=== PATIENT | male | born 1955 | race Caucasian/White ===

== ENCOUNTER 2017-01-18 13:23 | Inpatient (IN) | payer OTHER ==
[~2017-01-18] VITALS: Ht 188 cm; Wt 95.0 kg
[~2017-01-18 13:23] MED LIST: AUG875; HYDR-1666
[2017-01-18 14:51] VITALS: Ht 188 cm; Wt 95.0 kg
[2017-01-18 15:27] VITALS: BP 150/85; PULSE 64; RESP 18
[2017-01-18 16:30] LABS: BASOPHIL # 0.1 10^3/ul (0.0-0.1); BASOPHILS % 0.5 % (0.0-2.0); EOSINOPHILS # 0.1 10^3/ul (0.0-0.5); EOSINOPHILS % 0.4 % (0.0-7.0); HEMATOCRIT 44.3 % (42.0-52.0); HEMOGLOBIN 14.7 g/dl (14.0-18.0); LYMPHOCYTES # 2.6 10^3/ul (0.8-2.9); LYMPHOCYTES % 20.1 % (15.0-51.0); MEAN CORPUSCULAR HEMOGLOBIN 31.1 pg (29.0-33.0); MEAN CORPUSCULAR HGB CONC 33.2 g/dl (32.0-37.0); MEAN CORPUSCULAR VOLUME 93.7 fl (82.0-101.0); MEAN PLATELET VOLUME 10.4 fl (7.4-10.4); MONOCYTE # 1.1 10^3/ul (0.3-0.9); MONOCYTES % 8.6 % (0.0-11.0); NEUTROPHIL # 9.2 10^3/ul (1.6-7.5); PLATELET COUNT 194 10^3/UL (140-415); RED BLOOD COUNT 4.73 10^6/ul (4.70-6.10); WHITE BLOOD COUNT 13.1 10^3/ul (4.8-10.8)
[2017-01-18] MEDS: HYDROmorphONE 0.5 MG/0.5 ML SYG IV PRN ×2 (16:43→20:55)
[2017-01-18 16:51] LABS: ALBUMIN 3.9 g/dl (3.3-4.9); ALBUMIN/GLOBULIN RATIO 1.11; BILIRUBIN,INDIRECT 1.8 mg/dl (0-1.1); BILIRUBIN,TOTAL 1.8 mg/dl (0.2-1.3); CALCIUM 9.2 mg/dl (8.4-10.2); CREATININE 1.03 mg/dl (0.61-1.24); POTASSIUM 4.1 mmol/L (3.5-5.1); TOTAL PROTEIN 7.4 g/dl (6.1-8.1)
[2017-01-18] MEDS ORDERED: LISI10TA2 PO (17:37)
[2017-01-18] MEDS ORDERED: METO-448 PO (17:38)
[2017-01-18] MEDS ORDERED: ATOR40TA68 PO (17:39)
[2017-01-18] MEDS ORDERED: ASPI81TA3 PO (17:40)
--- NOTE | 2017-01-18 17:55 | HP ---
Date/Time of Note Date/Time of Note DATE: 01/18/17 TIME: 17:43 Assessment/Plan VTE Prophylaxis VTE Prophylaxis Intervention: LMWH Lines/Catheters IV Catheter Type (from [facility]): Saline Lock Urinary Cath still in place: No Assessment/Plan Chief Complaint/Hosp Course 61 yo male with hypertension, HLD who presents with R sided hydronephrosis likley 2/2 nephrolithiasis, though concern for mass as well - renal US to look for stone, CT A/P w IV con - Flomax - IVF - Pain control w ketorolac, dilaudid - Will consult urology for guidance Problems: HPI/ROS Admit Date/Time Admit Date/Time Jan 18, 2017 at 14:35 Hx of Present Illness 61 yo male with h/o HTN, HLD transferred from [place] for evaluation of hydronephrosis Patient in usual state of generally good health until the past week or so during which he has slowly developed R sided flank and groin pain which is progressive. By yesterday had become intolerable and developed nausea and vomiting. Went to [facility] where CT imaging showed R sided hydronephrosis with nephrolithiaiss but no clear obstructing stone. Incidentaly found to have L sided renal mass as well. Creatinin 1.0. UA with RBCs but no WBCs. No fevers. Recieved fluids, pain control and transferred here. Currently uncomfortable, but pain tolerable PMH/Family/Social Past Medical History Medical History: high cholesterol, hypertension Social History Alcohol Use: none Smoking Status: Never smoker Drug Use: none Exam/Review of Systems Vital Signs Vitals Vital Signs Date Time Temp Pulse Resp B/P Pulse Ox O2 Delivery O2 Flow Rate FiO2 01/18/17 15:27 98.5 64 18 150/85 94 Room Air Exam Constitutional: alert, oriented, well developed Psych: nl mood/affect, no complaints Head: atraumatic, normocephalic Eyes: EOMI, PERRL, nl conjunctiva, nl lids, nl sclera ENMT: nl external ears & nose, nl lips & teeth, nl nasal mucosa & septum Neck: non-tender, supple Respiratory: clear to auscultation, normal air movement Cardiovascular: nl pulses, regular rate and rhythm Gastrointestinal: nl liver, spleen, non-tender, soft Musculoskeletal: nl extremities to inspection Extremities: normal pulses Neurological: DIRECTORY ASSISTANCE OPERATOR II-XII intact, nl mental status, nl speech, nl strength Skin: nl turgor, No rash or lesions Lymph: nl lymph nodes Labs Result Diagram: 01/18/17161301/18/171613 Medications Medications Current Medications Hydromorphone HCl (Dilaudid) 0.5 mg Q2H PRN IV PAIN Last administered on t 16:43; Admin Dose 0.5 MG; Start 01/18/17 at 17:00 Tamsulosin HCl (Flomax) 0.4 mg BID PO ; Start 01/18/17 at 21:00 ANDREI BECKMAN MD Jan 18, 2017 17:53
[2017-01-18] MEDS ORDERED: BARIUM SULF 2% 450 ML BTL (BERRY SMOOTHIE) PO ONE ×2 (18:00→19:00)
--- NOTE | 2017-01-18 18:50 | RADRPT ---
PROCEDURE: Renal US. CLINICAL INDICATION: Kidney stones TECHNIQUE: Multiple sonographic images of the kidneys were obtained. The images were reviewed on a PACS workstation. COMPARISON: No prior studies are available for comparison. FINDINGS: Both kidneys are normal in echogenicity. There is normal renal cortical thickness without focal thi nning or scarring. No solid renal masses are identified. There is mild right hydronephrosis. The le ft collecting system is normal in caliber. A 6 mm nonobstructing right lower pole intrarenal calculu s is seen. In addition, there is an 8 mm nonobstructing left lower pole intrarenal calculus. The right kidney measures 13.2 cm, and the left kidney measures 12.4 cm. Spot images of the pelvis demonstrating normally distended bladder with smooth contours. IMPRESSION: 1. Mild right hydronephrosis. The obstructing calculus/process is not visualized by ultrasound. 2. Bilateral nonobstructing intrarenal calculi are noted RPTAT: HH .Daren Tanner MD, Date Time Electronically viewed and signed by .Daren Tanner MD, MD on 01/18/2017 18:49 .W/
[2017-01-18] MEDS ORDERED: NACL 0.9% 3 ML SYG IV SCH (19:00)
[2017-01-18 20:28] VITALS: BP 150/84; RESP 20
[2017-01-18] MEDS: TAMSULOSIN (SR) 0.4 MG CAP PO SCH (20:51)
--- NOTE | 2017-01-19 01:21 | RADRPT ---
PROCEDURE: CT ABDOMEN AND PELVIS WITHOUT CONTRAST CLINICAL INDICATION: 61 years of age, male . Abdominal pain. Evaluate for renal stones. TECHNIQUE: CT of the abdomen and pelvis was performed without intravenous contrast. Oral contrast wa s not administered prior to the examination. Coronal and sagittal reformatted images were obtained from the axial source images. Images were revi ewed on a high-resolution PACS workstation. DICOM images are available. Dose information: Based on a 32 cm phantom, the estimated radiation dose (CTDIvol mGy) for each seri es in this exam is 22.7. The estimated cumulative dose (DLP mGy-cm) is 1432. One or more of the following dose reduction techniques were used: - Automated exposure control. - Adjustment of the mA and/or kV according to patient size. - Use of iterative reconstruction technique. COMPARISON: Renal ultrasound from earlier the same day FINDINGS: In the absence of intravenous contrast, the study constitutes a limited assessment of the solid orga ns, bowel and vessels. LUNG BASES: Bilateral dependent atelectasis. Multivessel coronary artery calcification. ABDOMEN/PELVIS: Liver: Liver is enlarged and measures 21 cm in length. Gallbladder: Cholelithiasis. Two dominant calcified stones in the gallbladder individually measuring 2 cm. Gallbladder is normally distended without evidence of wall inflammation. Bile ducts: No intrahepatic or extrahepatic biliary duct dilatation. Spleen: Normal noncontrast appearance. Pancreas: Normal noncontrast appearance. Adrenal glands: Normal noncontrast appearance. Kidneys and ureters: Right Kidney: There is a 0.7 cm obstructing calculus in the distal right ureter at the pelvic inlet with moderate right hydronephrosis and right perinephric fat stranding (3/143). There are nonobstru cting calculi in the superior and inferior pole calyces of the right kidney measuring up to 0.5 cm. Left kidney: There is a 6.6 x 8 cm exophytic complex cystic mass at the superior pole of the left ki dney that is incompletely characterized (3/54). This mass contains interrupted peripheral calcificat ion. There is thick nodular mural thickening measuring up to 1.9 cm with calcification and central l ow density. The appearance is most in keeping with a complex cyst with solid components (Bosniak 4 ) . There are sub centimeter hypodensities at the lower pole of the left kidney that likely represent cysts. Negative for left renal calculi or hydronephrosis. Aorta and IVC: Atherosclerotic calcification and tortuosity of aorta and iliac vessels. Mild ectasia of the infrarenal aorta measuring 2.5 cm without abdominal aortic aneurysm. Lymph nodes: Normal noncontrast appearance. Gastrointestinal tract: Normal noncontrast appearance. Appendix: Normal Bladder: Normal noncontrast appearance. Pelvic Organs: Prostate gland and seminal vesicles are unremarkable. Peritoneal cavity: No free fluid or free intraperitoneal air. Abdominal wall: Normal noncontrast appearance. BONES: Musculoskeletal: Multilevel degenerative changes in spine and pelvis. Chronic bilateral pars intra-a rticularis defects at L5. No suspicious bone lesions. IMPRESSION: 1. 0.7 cm obstructing calculus distal right ureter with moderate right hydronephrosis and perinephr ic fat stranding. In addition there are nonobstructing right renal calculi. 2. 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 It was not seen on recent ultrasound for te chnical reasons. Recommend further evaluation with multi phase enhanced CT or MRI and urology consul tation. 3. Cholelithiasis without evidence of acute cholecystitis or biliary obstruction. 4. Hepatomegaly. RPTAT: HCTS Physician Anil Date Time Electronically viewed and signed by Physician Anil on 01/19/2017 01:20 /
[2017-01-19 02:01] VITALS: BP 166/99; RESP 19
[2017-01-19] MEDS ORDERED: hydrALAzine 20 MG INJ IV PRN (02:50)
[2017-01-19] MEDS: KETOROLAC 15 MG INJ IV PRN ×2 (03:00→11:40)
[2017-01-19 05:42] VITALS: BP 152/85; PULSE 77
[2017-01-19 06:20] LABS: BASOPHIL # 0.1 10^3/ul (0.0-0.1); BASOPHILS % 0.4 % (0.0-2.0); EOSINOPHILS # 0.1 10^3/ul (0.0-0.5); HEMATOCRIT 43.6 % (42.0-52.0); HEMOGLOBIN 14.4 g/dl (14.0-18.0); LYMPHOCYTES # 2.2 10^3/ul (0.8-2.9); LYMPHOCYTES % 18.7 % (15.0-51.0); MEAN CORPUSCULAR HEMOGLOBIN 31.2 pg (29.0-33.0); MEAN CORPUSCULAR VOLUME 94.4 fl (82.0-101.0); MONOCYTE # 0.9 10^3/ul (0.3-0.9); MONOCYTES % 7.4 % (0.0-11.0); NEUTROPHIL # 8.6 10^3/ul (1.6-7.5); NEUTROPHILS % 72.2 % (39.0-77.0); PLATELET COUNT 195 10^3/UL (140-415); RED BLOOD COUNT 4.62 10^6/ul (4.70-6.10); RED CELL DISTRIBUTION WIDTH 11.9 % (11.5-14.5)
[2017-01-19 06:55] LABS: ALBUMIN/GLOBULIN RATIO 1.25; CREATININE 0.97 mg/dl (0.61-1.24); POTASSIUM 3.7 mmol/L (3.5-5.1); TOTAL PROTEIN 7.2 g/dl (6.1-8.1)
[2017-01-19 08:00] VITALS: BP 148/86; RESP 19
[2017-01-19] MEDS: TAMSULOSIN (SR) 0.4 MG CAP PO SCH (08:34)
[2017-01-19] MEDS: HYDROmorphONE 0.5 MG/0.5 ML SYG IV PRN (13:42)
--- NOTE | 2017-01-19 14:11 | CONS ---
Date/Time of Note Date/Time of Note DATE: 01/19/17 TIME: 14:05 Assessment/Plan Assessment/Plan Chief Complaint/Hosp Course i reviewed the situation with the patient he has a rt ureteral stone that has a reasonable liklhodd of spontaneous passage he prefers to pass instead of surgery he would like to go home on pain meds also has a worrisome lesion on lt kidney and i told him clearly he may have cancer Plan he would like to go home on pain medicine i advise flomax, hydration, avoid constipation and continued activity, not bed rest he needs follow up with a Urologist in his network he needs a strained he understands he may have a cancer in his lt kidney and needs follow up with Urology discussed with hopitalist Problems: Consultation Date/Type/Reason Admit Date/Time Jan 18, 2017 at 14:35 Date of Consultation: Jan 19, 2017 Type of Consultation: uro Reason for Consultation stone rt ureter and mass left kidney Hx of Present Illness patient says he has had rt flank pain for the last three days no prior hx of stone disease no prior urologic history was transfered from another hospital ct was done yesterday (maybe second ct in 2 d) shows rt 7mm stone distal to iliac vessels and moderate hydro. also shows a mass upper pole left kidney with some potentially solid components worrisom for malignancy Constitutional: no complaints Respiratory: no complaints Skin: no complaints Psychological: nl mood/affect, no complaints Past Medical History Medical History: high cholesterol, hypertension Social History Alcohol Use: none Smoking Status: Never smoker Drug Use: none Exam/Review of Systems Vital Signs Vitals Vital Signs Date Time Temp Pulse Resp B/P Pulse Ox O2 Delivery O2 Flow Rate FiO2 01/19/17 08:00 98.1 73 19 148/86 94 01/18/17 15:27 Room Air Intake and Output 01/18/17 01/18/17 01/19/17 14:59 22:59 06:59 Intake Total 600 ml 450 ml Output Total 500 ml Balance 600 ml -50 ml Exam Constitutional: alert Psych: no complaints Head: normocephalic Eyes: nl conjunctiva Neck: supple Respiratory: normal air movement Gastrointestinal: soft Musculoskeletal: nl extremities to inspection Skin: nl turgor Results Result Diagram: 01/19/17 0428 01/19/17 0427 Results 24 hrs Laboratory Tests Test 01/18/17 16:14 01/19/17 04:27 01/19/17 04:28 White Blood Count 13.1 H 12.0 H Red Blood Count 4.73 4.62 L Hemoglobin 14.7 14.4 Hematocrit 44.3 43.6 Mean Corpuscular Volume 93.7 94.4 Mean Corpuscular Hemoglobin 31.1 31.2 Mean Corpuscular Hemoglobin Concent 33.2 33.0 Red Cell Distribution Width 12.0 11.9 Platelet Count 194 195 Mean Platelet Volume 10.4 11.0 H Neutrophils % 70.0 72.2 Lymphocytes % 20.1 18.7 Monocytes % 8.6 7.4 Eosinophils % 0.4 1.0 Basophils % 0.5 0.4 Nucleated Red Blood Cells % 0.0 0.0 Neutrophils # 9.2 H 8.6 H Lymphocytes # 2.6 2.2 Monocytes # 1.1 H 0.9 Eosinophils # 0.1 0.1 Basophils # 0.1 0.1 Nucleated Red Blood Cells # 0.0 0.0 Sodium Level 141 141 Potassium Level 4.1 3.7 Chloride Level 103 102 Carbon Dioxide Level 32 H 28 Anion Gap 10 15 Blood Urea Nitrogen 15 17 Creatinine 1.03 0.97 Glucose Level 109 138 Calcium Level 9.2 9.0 Total Bilirubin 1.8 H 2.0 H Direct Bilirubin 0.00 0.00 Indirect Bilirubin 1.8 H 2.0 H Aspartate Amino Transf (AST/SGOT) 27 24 Alanine Aminotransferase (ALT/SGPT) 42 33 Alkaline Phosphatase 59 62 Total Protein 7.4 7.2 Albumin 3.9 4.0 Globulin 3.50 H 3.20 Albumin/Globulin Ratio 1.11 1.25 Medications Medications Current Medications Hydromorphone HCl (Dilaudid) 0.5 mg Q2H PRN IV PAIN Last administered on 13:42; Admin Dose 0.5 MG; Start 01/18/17 at 17:00 Tamsulosin HCl (Flomax) 0.4 mg BID PO Last administered on 01/19/17 08:34; Admin Dose 0.4 MG; Start 01/18/17 at 21:00 Ketorolac Tromethamine (Toradol) 15 mg Q6H PRN IV PAIN Last administered on 11:40; Admin Dose 15 MG; Start 01/18/17 at 18:00; Stop 01/21/17 at 17: 59 Hydralazine HCl (Apresoline) 10 mg Q4H PRN IV SBP=>160 Last administered on t 02:52; Admin Dose 10 MG; Start 01/19/17 at 02:[address] GOINS MD Jan 19, 2017 14:11
[2017-01-19 15:20] VITALS: BP 157/81; RESP 17
[2017-01-19] MEDS ORDERED: OXYCODONE/ACETAMINOPHEN (5/325) TAB PO PRN (15:30)
[2017-01-19] MEDS ORDERED: OXYC-279 PO (16:31)
--- NOTE | 2017-01-19 16:34 | PDOCDIS ---
Discharge Instructions DIAGNOSIS Discharge Diagnosis Nephrolithiasis CONDITION Patient Condition: Good HOME CARE INSTRUCTIONS: Special Diet: regular FOLLOW UP/APPOINTMENTS Follow-up Plan You have been diagnosed with a kidney stone which should pass over the coming days. You should urinate through a strainer and try to collect the stone and bring it to your urologist for analysis if you can. You have also been found to have a mass on your opposite kidney on the left which is concerning for cancer. It is very important that you make an appointment with a urologist to care for both your kidney stone and evaluation of the mass on your left kidney. Return to the hospital if you have worsening pain or fever or any other concerning symptoms ANDREI BECKMAN MD Jan 19, 2017 16:34
--- NOTE | 2017-01-19 16:40 | DS ---
Date/Time of Note Date/Time of Note DATE: 01/19/17 TIME: 16:35 Discharge Summary Admission/Discharge Info Admit Date/Time Jan 18, 2017 at 14:35 Discharge Date/Time Discharge Diagnosis Nephrolithiasis Patient Condition: Good Hx of Present Illness 61 yo male with h/o HTN, HLD transferred from [place] for evaluation of hydronephrosis Patient in usual state of generally good health until the past week or so during which he has slowly developed R sided flank and groin pain which is progressive. By yesterday had become intolerable and developed nausea and vomiting. Went to [facility] where CT imaging showed R sided hydronephrosis with nephrolithiaiss but no clear obstructing stone. Incidentaly found to have L sided renal mass as well. Creatinin 1.0. UA with RBCs but no WBCs. No fevers. Recieved fluids, pain control and transferred here. Currently uncomfortable, but pain tolerable Hospital Course i reviewed the situation with the patient he has a rt ureteral stone that has a reasonable liklhodd of spontaneous passage he prefers to pass instead of surgery he would like to go home on pain meds also has a worrisome lesion on lt kidney and i told him clearly he may have cancer Plan he would like to go home on pain medicine i advise flomax, hydration, avoid constipation and continued activity, not bed rest he needs follow up with a Urologist in his network he needs a strained he understands he may have a cancer in his lt kidney and needs follow up with Urology discussed with hopitalist The patient underwent a CT scan showing an obstructing renal stone with moderate hydronephrosis of his right kidney. It also showed an incidental mass on his left kidney. His renal function was normal and he did not have any UTI. He was prescribed flomax and percocet for pain. He was counseled to strain his urine to collect the stone. He was also clearly informed about the mass on his left kidney and that it could be cancer. He understands he needs to follow up with a urologist for management. Dr Das saw the patient and recommended clinic follow up. Home Meds Reported Medications Aspirin* (Aspirin* Chew) 81 Mg Tab.chew, 81 MG PO DAILY, TAB.CHEW 01/18/17 Atorvastatin* (Atorvastatin*) 40 Mg Tablet, 40 MG PO QHS, TAB 01/18/17 Metoprolol Tartrate* (Lopressor*) 25 Mg Tab, 25 MG PO DAILY, TAB 01/18/17 Lisinopril* (Lisinopril*) 10 Mg Tablet, 10 MG PO DAILY, TAB 01/18/17 Follow-up Plan You have been diagnosed with a kidney stone which should pass over the coming days. You should urinate through a strainer and try to collect the stone and bring it to your urologist for analysis if you can. You have also been found to have a mass on your opposite kidney on the left which is concerning for cancer. It is very important that you make an appointment with a urologist to care for both your kidney stone and evaluation of the mass on your left kidney. Return to the hospital if you have worsening pain or fever or any other concerning symptoms Primary Care Provider Not On Staff Doctor Pending Labs Laboratory Tests Test 01/19/17 04:27 01/19/17 04:28 Sodium Level 141mmol/L (135-144) Potassium Level 3.7mmol/L (3.5-5.1) Chloride Level 102mmol/L (97-110) Carbon Dioxide Level 28mmol/L (21-31) Anion Gap 15 (8-16) Blood Urea Nitrogen 17mg/dl (7-20) Creatinine 0.97mg/dl (0.61-1.24) Glucose Level 138mg/dl (70-220) Calcium Level 9.0mg/dl (8.4-10.2) Total Bilirubin 2.0mg/dl (0.2-1.3) Direct Bilirubin 0.00mg/dl (0.00-0.20) Indirect Bilirubin 2.0mg/dl (0-1.1) Aspartate Amino Transf (AST/SGOT) 24IU/L (15-46) Alanine Aminotransferase (ALT/SGPT) 33IU/L (13-69) Alkaline Phosphatase 62IU/L (42-121) Total Protein 7.2g/dl (6.1-8.1) Albumin 4.0g/dl (3.3-4.9) Globulin 3.20g/dl (1.3-3.2) Albumin/Globulin Ratio 1.25 White Blood Count 12.010^3/ul (4.8-10.8) Red Blood Count 4.6210^6/ul (4.70-6.10) Hemoglobin 14.4g/dl (14.0-18.0) Hematocrit 43.6% (42.0-52.0) Mean Corpuscular Volume 94.4fl (82.0-101.0) Mean Corpuscular Hemoglobin 31.2pg (29.0-33.0) Mean Corpuscular Hemoglobin Concent 33.0g/dl (32.0-37.0) Red Cell Distribution Width 11.9% (11.5-14.5) Platelet Count 94969^3/UL (140-415) Mean Platelet Volume 11.0fl (7.4-10.4) Neutrophils % 72.2% (39.0-77.0) Lymphocytes % 18.7% (15.0-51.0) Monocytes % 7.4% (0.0-11.0) Eosinophils % 1.0% (0.0-7.0) Basophils % 0.4% (0.0-2.0) Nucleated Red Blood Cells % 0.0/100WBC (0.0-0.0) Neutrophils # 8.610^3/ul (1.6-7.5) Lymphocytes # 2.210^3/ul (0.8-2.9) Monocytes # 0.910^3/ul (0.3-0.9) Eosinophils # 0.110^3/ul (0.0-0.5) Basophils # 0.110^3/ul (0.0-0.1) Nucleated Red Blood Cells # 0.010^3/ul (0.0-0.0) ANDREI BECKMAN MD Jan 19, 2017 16:40
[2017-01-19] MEDS ORDERED: TAMS-14 PO (16:41)
== END 2017-01-19 18:30 | disposition home or self-care (01) | DRG 694 ==
LOC: PP2 14:35
PROVIDERS: ADMIT Internal Medicine; ATTEND Internal Medicine
DX: N13.2 Hydronephrosis with renal and ureteral calculous obstruction (principal); I10 Essential (primary) hypertension; E78.5 Hyperlipidemia, unspecified
CPT/HCPCS: 74176; 76775; 80053; 85025; J0360; J1170; J1885

== ENCOUNTER 2017-12-26 05:53 | Day surgery (SDC) | END 2017-12-26 11:45 | disposition home or self-care (01) ==

== ENCOUNTER 2019-01-07 10:33 | Emergency (ER) | payer OTHER ==
[~2019-01-07] VITALS: Ht 188 cm; Wt 115.5 kg
[~2019-01-07 10:33] MED LIST changes: +ACYC800T5 PO; +AMLO-147 PO; +ASPI81TA52 PO; +ATOR40TA68 PO; -AUG875; +CARV25TA97 PO; +GLIP5TAB13 PO; -HYDR-1666; +HYDR25TA6 PO; +LISI-471 PO; +METF500T24 PO; +TAMS0.4C2 PO
[2019-01-07 10:35] VITALS: Ht 188 cm; Wt 115.5 kg
[2019-01-07 11:58] VITALS: BP 136/86; PULSE 76; RESP 18
== END 2019-01-07 11:58 | disposition home or self-care (01) ==
LOC: E/R 10:33
DX: B02.9 Zoster without complications (principal); I10 Essential (primary) hypertension; Z79.82 Long term (current) use of aspirin; Z79.84 Long term (current) use of oral hypoglycemic drugs; Z86.73 Personal history of transient ischemic attack (TIA), and cerebral infarction without residual deficits
CPT/HCPCS: 93005